=== PATIENT | female | born 1995 | race Caucasian/White ===

== ENCOUNTER 2017-06-19 20:17 | Emergency (ER) | payer BC, MEDICAID ==
[~2017-06-19] VITALS: Ht 157.5 cm; Wt 59.0 kg
--- NOTE | 2017-06-19 20:29 | NUR ---
PT WALKED INTO ER C/O LT GREAT TOE PAIN, PT ALERT, ORIENTED X 4, NO RESP DISTRESS NOTED OR REPORTED UPON ASSESSMENT....MD AT BEDSIDE...
--- NOTE | 2017-06-19 21:07 | NUR ---
Patient discharged to home in stable conditon. Written and verbal after care instructions given. Patient verbalizes understanding of instructions. pt walked out of ER unassisted with family at side....
[2017-06-19 21:08] VITALS: BP 121/71
== END 2017-06-19 21:11 | disposition home or self-care (01) ==
LOC: ER 20:17
DX: L03.032 Cellulitis of left toe (principal)
CPT/HCPCS: 99283; A4663